=== PATIENT | female | born 1980 | race Hispanic/Latino ===

== ENCOUNTER 2023-10-15 18:25 | Emergency (ER) | payer OTHER ==
[~2023-10-15] VITALS: Ht 162.6 cm; Wt 77.1 kg
[2023-10-15 19:09] LABS: BASOPHILS # (AUTO) 0.03 K/uL (0.00-0.20); BASOPHILS % (AUTO) 0.2 % (0.0-5.0); EOSINOPHILS # (AUTO) 0.11 K/uL (0.00-0.70); EOSINOPHILS % (AUTO) 0.8 % (0.0-8.0); HEMATOCRIT 37.2 % (36-48); IMMATURE GRANULOCYTE ABSOLUTE 0.08 K/uL (0-1); LYMPHOCYTES # (AUTO) 1.4 K/uL (1.0-4.8); LYMPHOCYTES % (AUTO) 10.2 % (21.0-51.0); MEAN CORPUSCULAR HEMOGLOBIN 30.2 pg (27.0-33.0); MEAN CORPUSCULAR HGB CONC 33.9 g/dL (32.0-36.0); MEAN CORPUSCULAR VOLUME 89.2 fL (79-99); MONOCYTES # (AUTO) 0.6 K/uL (0.1-1.0); MONOCYTES % (AUTO) 4.6 % (3.0-13.0); NEUTROPHILS # (AUTO) 11.3 K/uL (1.8-7.7); NEUTROPHILS % (AUTO) 83.6 % (40.0-77.0); PLATELET COUNT (AUTO) 312 K/uL (130-400); RED BLOOD CELL COUNT(AUTO) 4.17 MIL/uL (4.00-5.50); RED CELL DISTRIBUTION WIDTH 13.1 % (11.0-15.5); WHITE BLOOD COUNT (AUTO) 13.5 K/uL (4.8-10.8)
[2023-10-15 19:27] LABS: CREATININE 0.8 mg/dL (0.5-1.5); POTASSIUM 3.7 mmol/L (3.5-5.1)
[2023-10-15 19:31] LABS: ALBUMIN 4.2 g/dL (3.5-5.0); BILIRUBIN,TOTAL 0.4 mg/dL (0.2-1.0); TOTAL PROTEIN, SERUM 7.7 g/dL (6.0-8.3)
[2023-10-15 21:37] LABS: APPEARANCE,URINE CLOUDY (CLEAR); BILIRUBIN,URINE NEGATIVE (NEGATIVE); COLOR,URINE YELLOW (YELLOW); GLUCOSE, URINE (UA) NEGATIVE (NEGATIVE); KETONES,URINE 5 mg/dL (NEGATIVE); LEUKOCYTE ESTERASE ,URINE NEGATIVE Leu/uL (NEGATIVE); NITRATE,URINE 2+ (NEGATIVE); OCCULT BLOOD,URINE MODERATE (NEGATIVE); PROTEIN,URINE 30 mg/dL (NEGATIVE); UROBILINOGEN,URINE 0.2 mg/dL (0.2-1.0)
[2023-10-15 21:40] LABS: ADD UA MICROSCOPIC YES
[2023-10-15 21:42] LABS: BACTERIA,URINE MOD /HPF (None Seen); MUCUS,URINE FEW LPF (None Seen); SQUAMOUS EPITHELIAL CELL,UR FEW /HPF (0-2)
[2023-10-15] MEDS: PREDNISONE 20 MG TABLET PO ONE (22:43)
[2023-10-15] MEDS: FAMOTIDINE 20MG TAB PO ONE (22:43)
[2023-10-15] MEDS: IBUPROFEN 600 MG TABLET PO ONE (22:44)
[2023-10-15] MEDS: ONDANSETRON ODT 4MG TAB SL ONE (22:44)
[2023-10-15] MEDS: DIPHENHYDRAMINE HCL 25 MG CAPSULE PO ONE (22:44)
[2023-10-15] MEDS: CEFTRIAXONE 1G VIAL IM ONE (22:45)
[2023-10-15 23:05] VITALS: BP 131/80; PULSE 85; RESP 17; O2SAT 100
[2023-10-15] MEDS ORDERED: MACR100 PO (23:09)
[2023-10-15] MEDS ORDERED: PRED20TA3 PO (23:09)
== END 2023-10-15 23:29 | disposition home or self-care (01) ==
LOC: EDH 18:25
DX: N39.0 Urinary tract infection, site not specified (principal); G44.209 Tension-type headache, unspecified, not intractable; Z79.899 Other long term (current) drug therapy; Z90.710 Acquired absence of both cervix and uterus; Z98.890 Other specified postprocedural states
CPT/HCPCS: 99284; 80053; 83690; 85025; 87077; 87088; 87186; 81001; 36415; 96372; Q0163; J0696